=== PATIENT | male | born 1970 | race Asian ===

== ENCOUNTER 2021-04-16 10:00 | Outpatient (REF) | payer OTHER, SELFPAY ==
[2021-04-16 11:20] LABS: Binax Now Covid-19 Ag Negative (Negative)
[2021-04-16 11:21] LABS: Binax Internal Control QC Valid; Binax Lot number: 9864
== END 2021-04-16 10:01 | disposition home or self-care (01) ==
LOC: HO.LAB 10:00
PROVIDERS: Visit Provider Internal Medicine
DX: Z20.822 Contact with and (suspected) exposure to COVID-19 (principal)
CPT/HCPCS: 36415; C9803